=== PATIENT | female | born 1960 | race Caucasian/White ===

== ENCOUNTER 2018-07-25 05:30 | Day surgery (SDC) | payer OTHER ==
[~2018-07-25] VITALS: Ht 162.6 cm; Wt 118.0 kg
[2018-07-25] MEDS ORDERED: LIDOCAINE 2% 30 ML JELLY TP ONE (05:31)
[2018-07-25] MEDS ORDERED: ALBUTEROL SULFATE 2.5 MG/0.5 ML NEB SOLUTION NEB ONE (05:31)
[2018-07-25] MEDS ORDERED: LIDOCAINE 4% 50 ML SOLUTION TP ONE (05:31)
[2018-07-25] MEDS ORDERED: BENZOCAINE 20% 50 MCG/SPRAY 57 GM TP ONE (05:31)
[2018-07-25] MEDS ORDERED: SODIUM CHLORIDE 0.9% 1,000 ML IV ONE ×2 (05:59→06:30)
[2018-07-25] MEDS ORDERED: MULT-1203 PO (06:48)
[2018-07-25] MEDS ORDERED: INSLAN SQ (06:48)
[2018-07-25] MEDS ORDERED: METF-960 PO (06:48)
[2018-07-25] MEDS ORDERED: LISI-662 PO (06:48)
[2018-07-25] MEDS ORDERED: ASPI81 PO (06:48)
[2018-07-25] MEDS ORDERED: MELO-107 PO (06:48)
[2018-07-25] MEDS ORDERED: SITA100 PO (06:48)
[2018-07-25] MEDS ORDERED: MONT10TA21 PO (06:48)
[2018-07-25] MEDS ORDERED: GLIP10 PO (06:48)
[2018-07-25] MEDS ORDERED: HYDR25TA PO (06:48)
[2018-07-25] MEDS ORDERED: SIMV-260 PO (06:48)
[2018-07-25] MEDS ORDERED: FentaNYL CITRATE-PF 100 MCG/2 ML VIAL ONE (07:02)
[2018-07-25] MEDS ORDERED: MIDAZOLAM HCL 2 MG/2 ML VIAL ONE (07:02)
[2018-07-25 07:19] LABS: GLUCOMETER DEV NAME(LOC) SDS.; GLUCOSE,POINT OF CARE 140 MG/DL (70-110)
[2018-07-25] MEDS ORDERED: MethylPREDNISolone SOD SUCC 125 MG/2 ML VIAL ONE (08:30)
[2018-07-25] MEDS ORDERED: MethylPREDNISolone SOD SUCC 125 MG/2 ML VIAL IVP ONE (08:30)
[2018-07-25] MEDS ORDERED: OXYGEN THERAPY IH SCH (20:00)
== END 2018-07-25 09:45 | disposition home or self-care (01) ==
LOC: SURGERY 05:30
PROVIDERS: ATTEND Internal Medicine Critical Care Medicine
DX: J38.4 Edema of larynx (principal); B37.0 Candidal stomatitis; R91.1 Solitary pulmonary nodule
CPT/HCPCS: 31623; 31624; 71045; 82962; 87015; 87070; 87101; 87205; 87206; 87220; 88108; 88312; J2250; J2930; J3010; J7030